=== PATIENT | female | born 1935 | race Two or more races ===

== ENCOUNTER 2017-07-06 10:53 | Emergency (ER) | payer MEDICARE, MEDICAID ==
[~2017-07-06] VITALS: Ht 5032.2 cm; Wt 69.5 kg
[2017-07-06 11:07] VITALS: BP 131/72
[2017-07-06] MEDS ORDERED: ketorolac trometh inj. 60 MG/2 ML VIAL IM ONE (11:40)
[2017-07-06] MEDS ORDERED: ketorolac tromethamine 15mg/ml inj. IM ONE (11:40)
[2017-07-06] MEDS ORDERED: HYDROcodone/acetaminophen 10/325mg tab PO ONE (11:40)
[2017-07-06] MEDS ORDERED: HYDR-569 PO (11:43)
== END 2017-07-06 11:51 | disposition home or self-care (01) ==
LOC: ER 10:53
DX: M25.511 Pain in right shoulder (principal); E78.00 Pure hypercholesterolemia, unspecified; Z98.51 Tubal ligation status; Z60.2 Problems related to living alone
CPT/HCPCS: 96372; 99283; J1885

== ENCOUNTER 2017-09-26 09:36 | Emergency (ER) | payer MEDICARE, MEDICAID ==
[~2017-09-26] VITALS: Ht 539.5 cm; Wt 69.1 kg
[~2017-09-26 09:36] MED LIST: HYDR-569 PO
[2017-09-26] MEDS ORDERED: aspirin 325mg tablet PO ONE (10:05)
[2017-09-26] MEDS ORDERED: acetaminophen 325mg tablet PO ONE (10:05)
[2017-09-26 10:20] VITALS: BP 160/65
== END 2017-09-26 11:34 | disposition home or self-care (01) ==
LOC: ER 09:37
DX: M25.572 Pain in left ankle and joints of left foot (principal); G89.29 Other chronic pain; E78.00 Pure hypercholesterolemia, unspecified; Z88.8 Allergy status to other drugs, medicaments and biological substances; Z79.899 Other long term (current) drug therapy; Z60.2 Problems related to living alone
CPT/HCPCS: 73600; 99284